=== PATIENT | female | born 1980 | race Caucasian/White ===

== ENCOUNTER 2017-03-15 22:43 | Emergency (ER) | payer SELFPAY ==
--- NOTE | 2017-03-15 23:07 | PDOC ---
History of Present Illness - General Stated Complaint: SYNCOPE Time Seen by Provider: 03/15/17 22:51 History Source: Patient, Significant Other Exam Limitations: No Limitations - History of Present Illness Initial Comments: 03/16/17 01:41 36-year-old female with a history of anemia presents to the emergency department complaining of feeling extremely hot and uncomfortable after having 3 large glasses of wine and cooking in a hot kitchen. 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 She denies headache, lightheadedness, visual disturbance, neck pains, back pains, chest pain, shortness of breath, abdominal pains, extremity numbness or tingling sensation. Past History - Past Medical History Allergies/Adverse Reactions: Allergies Allergy/AdvReac Type Severity Reaction Status Date / Time peanut Allergy Verified 03/15/17 23:41 prunes Allergy Verified 03/15/17 23:41 strawberry Allergy Verified 03/15/17 23:41 Anemia: Yes - Suicide/Smoking/Psychosocial Hx Smoking History: Never smoked Have you smoked in the past 12 months: No Hx Alcohol Use: No Drug/Substance Use Hx: Yes (occasional) Substance Use Type: None Review of Systems - Review of Systems Able to Perform ROS?: Yes Comments:: 03/16/17 01:43 CONSTITUTIONAL: Absent: fever, chills, diaphoresis, generalized weakness, malaise, loss of appetite HEENT: Absent: rhinorrhea, nasal congestion, throat pain, throat swelling, difficulty swallowing, mouth swelling, ear pain, eye pain, visual Changes CARDIOVASCULAR: Absent: chest pain, loss of consciousness, palpitations, irregular heart rate, peripheral edema RESPIRATORY: Absent: cough, shortness of breath, dyspnea with exertion, orthopnea, wheezing, stridor, hemoptysis GASTROINTESTINAL: Absent: abdominal pain, abdominal distension, nausea, vomiting, diarrhea, constipation, melena, hematochezia GENITOURINARY: Absent: dysuria, frequency, urgency, hesitancy, hematuria, flank pain, genital pain MUSCULOSKELETAL: Absent: myalgia, arthralgia, joint swelling SKIN: Absent: rash, itching, pallor HEMATOLOGIC/IMMUNOLOGIC: Absent: easy bleeding, easy bruising, lymphadenopathy, frequent infections ENDOCRINE: Absent: unexplained weight gain, unexplained weight loss, heat intolerance, cold intolerance NEUROLOGIC: Absent: headache, focal weakness or paresthesias, dizziness, unsteady gait, seizure, mental status changes, bladder or bowel incontinence PSYCHIATRIC: Absent: anxiety, depression, suicidal or homicidal ideation, hallucinations. Is the patient limited Lithuanian proficient: No *Physical Exam - Vital Signs Last Vital Signs Temp Pulse Resp BP Pulse Ox 98.2 F 90 16 124/76 100 03/15/17 23:35 03/15/17 23:35 03/15/17 23:35 03/15/17 23:35 03/15/17 23:35 - Physical Exam Comments: 03/16/17 01:43 GENERAL: Well developed, well nourished. Awake and alert. No acute distress. HEENT: Normocephalic, atraumatic. PERRLA, EOMI. No conjunctival pallor. Sclera are non- icteric. Moist mucous membranes. Oropharynx is clear. NECK: Supple. Full ROM. No JVD. Carotid pulses 2+ and symmetric, without bruits. No thyromegaly. No lymphadenopathy. CARDIOVASCULAR: Regular rate and rhythm. No murmurs, rubs, or gallops. Distal pulses are 2+ and symmetric. PULMONARY: No evidence of respiratory distress. Lungs clear to auscultation bilaterally. No wheezing, rales or rhonchi. ABDOMINAL: Soft. Non-tender. Non-distended. No rebound or guarding. No organomegaly. Normoactive bowel sounds. MUSCULOSKELETAL Normal range of motion at all joints. No bony deformities or tenderness. No CVA tenderness. EXTREMITIES: No cyanosis. No clubbing. No edema. No calf tenderness. SKIN: Warm and dry. Normal capillary refill. No rashes. No jaundice. NEUROLOGICAL: Alert, awake, appropriate. Cranial nerves 2-12 intact. No deficits to light touch and temperature in face, upper extremities and lower extremities. No motor deficits in the in face, upper extremities and lower extremities. Normoreflexic in the upper and lower extremities. Normal speech. Toes are down- going bilaterally. Gait is normal without ataxia. PSYCHIATRIC: Cooperative. Good eye contact. Appropriate mood and affect. PerC/PE afe: 38 HR <100 02 sat 99% No h/o PE/ DVT Denies any recent surgery/prolong sitting,trauma Neg hemoptysis Denies any OCP Denies any leg pain/swelling ED Treatment Course - LABORATORY CBC & Chemistry Diagram: 03/15/17 23:14 03/15/17 23:14 - ADDITIONAL ORDERS Additional order review: Laboratory Results 03/16/17 03/15/17 00:02 23:14 Sodium 137 Potassium 3.6 D Chloride 104 Carbon Dioxide 20 L D Anion Gap 13 BUN 8 Creatinine 0.6 Creat Clearance w eGFR > 60 Random Glucose 109 H D Calcium 8.1 L Total Bilirubin 0.3 D AST 20 D ALT 24 Alkaline Phosphatase 73 Creatine Kinase 93 Troponin I < 0.02 Total Protein 8.0 Albumin 3.4 Urine Color Colorless Urine Appearance Clear Urine pH 5.0 Urine Protein Negative Urine Glucose (UA) Negative Urine Ketones Negative Urine Blood 2+ H Urine Nitrite Negative Urine Bilirubin Negative Urine Urobilinogen Negative Urine RBC 6 Urine WBC 1 Ur Epithelial Cells Rare Urine Mucus Rare Urine HCG, Qual Negative 03/15/17 23:14 RBC 4.19 MCV 55.6 L MCHC 28.5 L RDW 20.3 H D MPV 8.9 D Neutrophils % 58.6 Lymphocytes % 29.0 Monocytes % 8.2 Eosinophils % 2.1 D Basophils % 2.1 H - Medications Given in the ED: ED Medications Discontinued Medications Generic Name Dose Route Start Last Admin Trade Name Freq PRN Reason Stop Dose Admin Sodium Chloride 1,000 mls @ 1,000 mls/hr 03/15/17 23:08 03/15/17 23:32 Normal Saline - IV 03/16/17 00:07 1,000 mls/hr ASDIR STA Administration Progress Note - Progress Note Progress Note: Patient was offered a blood transfusion which she adamantly refused. Patient is able to ambulate around the ER without any difficulties or assistance. Patient states she feels fine and insists on being discharged when she will follow with her own physicians. *DC/Admit/Observation/Transfer Diagnosis at time of Disposition: Anemia Qualifiers: Anemia type: unspecified type Qualified Code(s): D64.9 - Anemia, unspecified - Discharge Dispostion Disposition: HOME Condition at time of disposition: Stable Admit: No - Referrals Referrals: Norris Washington MD [Staff Physician] - - Patient Instructions Printed Discharge Instructions: DI for Anemia of Chronic Disease Additional Instructions: You refused a blood transfusion and insist on being discharge. Return to the ER for severe/persistent/worsening symptoms
[2017-03-15] MEDS ORDERED: SODIUM CHLORIDE 1,000 ML IV STA (23:08)
[2017-03-15 23:37] LABS: BASOPHIL 2.1 % (0-2.0); EOSINOPHIL 2.1 % (0-4.5); MCHC 28.5 g/dl (32.0-36.0); MEAN CELL VOLUME 55.6 fl (80-96); MEAN PLT VOLUME 8.9 fl (7.5-11.1); NEUTROPHILS 58.6 % (42.8-82.8); PLATELET COUNT 328 K/MM3 (134-434); RDW 20.3 % (11.6-15.6); WHITE BLOOD COUNT 7.5 K/mm3 (4.0-10.0)
[2017-03-15 23:39] VITALS: BP 124/76; PULSE 90; TEMP 98.2; BMI 27.4
[2017-03-16] LABS: ALBUMIN 3.4 g/dl (3.4-5.0); ANION GAP 13 (8-16); BILIRUBIN,TOTAL 0.3 mg/dL (0.2-1.0); CALCIUM 8.1 mg/dL (8.5-10.1); CO2 20 mmol/L (21-32); CREATININE 0.6 mg/dL (0.55-1.02); GLUCOSE,RANDOM 109 mg/dL (74-106); MCH 15.9 pg (25.7-33.7); SGOT/AST 20 U/L (15-37); SGPT/ALT 24 U/L (12-78)
[2017-03-16 00:02] LABS: ALK PHOS 73 U/L (45-117); CPK 93 IU/L (26-192); TROPONIN I < 0.02 ng/ml (0.00-0.05)
[2017-03-16 00:16] LABS: URINE APPEARANCE CLEAR; URINE BILIRUBIN NEGATIVE (NEGATIVE); URINE BLOOD 2+ (NEGATIVE); URINE COLOR COLORLESS; URINE GLUCOSE (UA) NEGATIVE (NEGATIVE); URINE KETONE NEGATIVE (NEGATIVE); URINE NITRITE NEGATIVE (NEGATIVE); URINE PROTEIN NEGATIVE (NEGATIVE); URINE UROBILINOGEN NEGATIVE mg/dL (0.2-1.0)
[2017-03-16 00:17] LABS: ANISOCYTOSIS 2+; HYPOCHROMIA 3+; MICROCYTOSIS 2+; PLATELET ESTIMATE ADEQUATE (NORMAL)
[2017-03-16 00:23] LABS: URINE MUCUS RARE; URINE RBC 6 /hpf (0-3); URINE WBC 1 /hpf (3-5)
--- NOTE | 2017-03-16 01:53 | PDOC ---
*Physical Exam - Vital Signs Last Vital Signs Temp Pulse Resp BP Pulse Ox 98.2 F 90 16 124/76 100 03/15/17 23:35 03/15/17 23:35 03/15/17 23:35 03/15/17 23:35 03/15/17 23:35 - Physical Exam Comments: 03/16/17 01:51 The patient was examined by [KARIS Ulloa] under my direct supervision. I personally evaluated the patient. I concur with the above findings and the plan of care. 36-year-old female with history of moderate iron deficiency anemia presented to the ER after consuming several alcoholic beverages with generalized weakness and malaise. In the ER, patient was noted and alert, nontoxic appearing; EKG showed no evidence of acute ischemia. CBC revealed a low H&H consistent with previous anemia. Patient refused packed cells. Patient had received IV fluids and after a period of observation was clinically sober and stable for discharge. ED Treatment Course - LABORATORY CBC & Chemistry Diagram: 03/15/17 23:14 03/15/17 23:14 - ADDITIONAL ORDERS Additional order review: Laboratory Results 03/16/17 03/15/17 00:02 23:14 Sodium 137 Potassium 3.6 D Chloride 104 Carbon Dioxide 20 L D Anion Gap 13 BUN 8 Creatinine 0.6 Creat Clearance w eGFR > 60 Random Glucose 109 H D Calcium 8.1 L Total Bilirubin 0.3 D AST 20 D ALT 24 Alkaline Phosphatase 73 Creatine Kinase 93 Troponin I < 0.02 Total Protein 8.0 Albumin 3.4 Urine Color Colorless Urine Appearance Clear Urine pH 5.0 Urine Protein Negative Urine Glucose (UA) Negative Urine Ketones Negative Urine Blood 2+ H Urine Nitrite Negative Urine Bilirubin Negative Urine Urobilinogen Negative Urine RBC 6 Urine WBC 1 Ur Epithelial Cells Rare Urine Mucus Rare Urine HCG, Qual Negative 03/15/17 23:14 RBC 4.19 MCV 55.6 L MCHC 28.5 L RDW 20.3 H D MPV 8.9 D Neutrophils % 58.6 Lymphocytes % 29.0 Monocytes % 8.2 Eosinophils % 2.1 D Basophils % 2.1 H - Medications Given in the ED: ED Medications Discontinued Medications Generic Name Dose Route Start Last Admin Trade Name Freq PRN Reason Stop Dose Admin Sodium Chloride 1,000 mls @ 1,000 mls/hr 03/15/17 23:08 03/15/17 23:32 Normal Saline - IV 03/16/17 00:07 1,000 mls/hr ASDIR STA Administration *DC/Admit/Observation/Transfer Diagnosis at time of Disposition: Anemia Qualifiers: Anemia type: unspecified type Qualified Code(s): D64.9 - Anemia, unspecified - Discharge Dispostion Disposition: HOME Condition at time of disposition: Stable - Referrals Referrals: Norris Washington MD [Staff Physician] - - Patient Instructions Printed Discharge Instructions: DI for Anemia of Chronic Disease Additional Instructions: You refused a blood transfusion and insist on being discharge. Return to the ER for severe/persistent/worsening symptoms - Post Discharge Activity
[2017-03-16 10:50] LABS: URINE LEUK ESTERASE Negative (NEGATIVE)
--- NOTE | 2017-03-16 15:58 | EKG ---
Test Reason : Blood Pressure : / mmHG Vent. Rate : 094 BPM Atrial Rate : 094 BPM P-R Int : 000 ms QRS Dur : 096 ms QT Int : 358 ms P-R-T Axes : 048 021 008 degrees QTc Int : 447 ms NORMAL SINUS RHYTHM BASE LINE ARTIFACTS IN V3-V5 ABNORMAL ECG WHEN COMPARED WITH ECG OF 20-JAN-2015 15:28, PREMATURE VENTRICULAR COMPLEXES ARE NO LONGER PRESENT FURTHER COMPARASION WITH HELD, WOULD RECOMMEND REPEAT EKG. Confirmed by OSMIN MAYES MD ([id number] on 03/16/2017 3:58:19 PM Referred By: Confirmed By:OSMIN MAYES MD
== END 2017-03-16 02:13 | disposition home or self-care (01) ==
LOC: JER 22:43
PROC: 3E0337Z Introduction of Electrolytic and Water Balance Substance into Peripheral Vein, Percutaneous Approach (ICD-10-PCS; principal; 2017-03-15)
DX: D64.9 Anemia, unspecified (principal)
CPT/HCPCS: 36415; 80053; 81003; 81015; 84484; 84703; 85025; 93005; 93010; 99284-25